=== PATIENT | female | born 1985 | race Caucasian/White ===

== ENCOUNTER 2016-08-09 22:09 | Emergency (ER) | payer SELFPAY ==
[~2016-08-09] VITALS: Ht 175.3 cm; Wt 129.6 kg
[~2016-08-09 22:09] MED LIST: MMW SSP; PRED15SO7 PO
[2016-08-09 22:11] VITALS: BP 183/88; PULSE 82; RESP 18; TEMP 98.2; O2SAT 99
== END 2016-08-09 23:23 | disposition left against medical advice (07) ==
LOC: NED 22:09
DX: N93.9 Abnormal uterine and vaginal bleeding, unspecified (principal)
CPT/HCPCS: 99281

== ENCOUNTER 2016-10-07 12:16 | Emergency (ER) | payer MEDICAID, OTHER ==
[~2016-10-07] VITALS: Ht 175.3 cm; Wt 134.0 kg
[2016-10-07 12:18] VITALS: BP 130/81; PULSE 85; RESP 17; TEMP 98.8; O2SAT 99
[2016-10-07] MEDS ORDERED: AMOX500C PO (12:29)
--- NOTE | 2016-10-07 12:29 | PD ---
HPI . sore throat for few days Chief Complaint: ENT Complaint Time Seen by Provider: 12:24 Travel History International Travel<30 days: No Contact w/Intl Traveler<30days: No Traveled to known affect area: No History of Present Illness HPI 31-year-old female with no significant past medical history here with complaints of what she believes a strep throat. Patient said she's had a sore throat for several days. She also reports a fever that she has been breaking with rotation of Tylenol and ibuprofen.. She admits to a painful throat. She thought she had some gland swelling. She is concerned as she has a disabled child and does not want to get them ill. She denies any coughing or rhinorrhea. PFSH Past Medical History Diminished Hearing: No ?: Not LMP: 10/01/2016 : 1 Para: 1 Past Surgical History Section: Yes Social History Alcohol Use: Yes (OCCAS) Tobacco Use: Yes (/2 PPD) Substance Use: No Allergies-Medications (Allergen,Severity, Reaction): Coded Allergies: No Known Allergies (Unverified , 10/07/16) Reported Meds & Prescriptions Reported Meds & Active Scripts Active Amoxicillin 500 Mg Cap 500 Mg PO BID 10 Days Review of Systems General / Constitutional: No: Fever Eyes: No: Visual changes HENT: Positive: Sore Throat, No: Headaches Cardiovascular: No: Chest Pain or Discomfort Respiratory: No: Shortness of Breath Gastrointestinal: No: Abdominal Pain Genitourinary: No: Dysuria Musculoskeletal: No: Pain Skin: No Rash Neurologic: No: Weakness Psychiatric: No: Depression Endocrine: No: Polydipsia Hematologic/Lymphatic: No: Easy Bruising Physical Exam Narrative GENERAL: AAO x 3, no acute distress, Well-nourished, well-developed patient. SKIN: Warm and dry. No visible rashes or bruising. HEAD: Normocephalic and atraumatic. EYES: No scleral icterus. No injection or drainage. EOM intact, PERRLA ENT: No nasal drainage noted. Mucous membranes pink. Airway patent. Moderate posterior thorax erythema, exudates and tonsillar edema present. TMs normal bilaterally NECK: Supple, trachea midline. No JVD. Minimal cervical chain lymphadenopathy CARDIOVASCULAR: Regular rate and rhythm without murmurs, gallops, or rubs. RESPIRATORY: Breath sounds equal bilaterally. No accessory muscle use. No rhonchi or rales. GASTROINTESTINAL: Abdomen soft, non-tender, nondistended. EXTREMITIES: No cyanosis or edema. BACK: Nontender without obvious deformity. No CVA tenderness. PSYCH: AAO x 3, normal affect. Data Data Last Documented VS Vital Signs Date Time Temp Pulse Resp B/P Pulse Ox O2 Delivery O2 Flow Rate FiO2 10/07/16 12:18 98.8 85 17 130/81 99 MDM Medical Decision Making Medical Screen Exam Complete: Yes Emergency Medical Condition: Yes Medical Record Reviewed: Yes Differential Diagnosis Acute pharyngitis, less likely sinusitis, less likely bronchitis Narrative Course 31-year-old female with no significant past medical history here with complaints of what she believes a strep throat. Patient said she's had a sore throat for several days. She also reports a fever that she has been breaking with rotation of Tylenol and ibuprofen.. She admits to a painful throat. She thought she had some gland swelling. She is concerned as she has a disabled child and does not want to get them ill. She denies any coughing or rhinorrhea. Patient seen and examined. She does have some significant posterior fair erythema, exudates and tonsillar edema. I will bypass rapid strep testing as I am going to opt for treatment due to physical exam findings. She does not have any allergies. We'll use amoxicillin. Take medications as prescribed. Try salt water gargles. Do not share utensils, toothbrush, etc. If you develop difficulty breathing, please go to the nearest emergency room. Patient verbalized understanding of instructions, questions were answered, and thanked me for their care. I advised them if their condition worsens, please return to the nearest emergency room for further care. Diagnosis Primary Impression: Acute pharyngitis Qualified Code: J02.9 - Acute pharyngitis, unspecified etiology Patient Instructions: General Instructions Additional Instructions: Take medications as prescribed. Try salt water gargles. Do not share utensils, toothbrush, etc. If you develop difficulty breathing, please go to the nearest emergency room. Please return to emergency department if your symptoms return or worsen. Follow up with your primary care provider. Take medications as prescribed. Med/Other Pt SpecificInfo: Prescription(s) given Scripts Amoxicillin 500 Mg [id number] Mg PO BID 10 Days Ref 0 Prov:David Montgomery MD 10/07/16 Disposition: 01 DISCHARGE HOME Condition: Stable Kimberly Vital Oct 07, 2016 12:28
== END 2016-10-07 12:42 | disposition home or self-care (01) ==
LOC: PHED 12:16
DX: J02.9 Acute pharyngitis, unspecified (principal); R50.9 Fever, unspecified; F17.200 Nicotine dependence, unspecified, uncomplicated
CPT/HCPCS: 99283

== ENCOUNTER 2016-12-30 21:33 | Observation (INO) | payer MEDICAID ==
[~2016-12-30] VITALS: Ht 175.3 cm; Wt 134.0 kg
[~2016-12-30 21:33] MED LIST changes: +AMOX500C PO; -MMW SSP; -PRED15SO7 PO
[2016-12-30 21:36] VITALS: BP 121/79; PULSE 95; RESP 24; TEMP 98.3; O2SAT 100
[2016-12-30 23:00] LABS: AUTOMATED NEUTROPHIL # 11.5 TH/MM3 (1.8-7.7); BASOPHIL % 0.2 % (0.0-2.0); EOSINOPHIL % 0.3 % (0.0-4.0); HEMATOCRIT 22.1 % (35.0-46.0); LYMPH % 9.9 % (9.0-44.0); LYMPHOCYTE # 1.3 TH/MM3 (1.0-4.8); MEAN CELL VOLUME 69.3 FL (80.0-100.0); MEAN CORPUSCULAR HEMOGLOBIN 21.6 PG (27.0-34.0); MEAN CORPUSCULAR HGB CONC 31.1 % (32.0-36.0); MONO % 5.2 % (0.0-8.0); NEUT % 84.4 % (16.0-70.0); PLATELET COUNT 328 TH/MM3 (150-450); RED BLOOD COUNT 3.19 MIL/MM3 (4.00-5.30); RED CELL DISTRIBUTION WIDTH 18.6 % (11.6-17.2); WHITE BLOOD COUNT 13.6 TH/MM3 (4.0-11.0)
[2016-12-30 23:01] LABS: HEMO FLAGS DIFF FINAL
--- NOTE | 2016-12-30 23:15 | PD ---
HPI Chief Complaint: Abdominal Pain Time Seen by Provider: 22:40 Travel History International Travel<30 days: No Contact w/Intl Traveler<30days: No Traveled to known affect area: No History of Present Illness HPI The patient is a 31 year old female who presents to the [facility] emergency department with a history of heavy vaginal bleeding that began around 5 PM today. The patient reports that her menstrual cycle began last Saturday. She reports that normally it lasts 3-4 days and a light regarding blood flow. She reports that today around 4 PM she began to have increased pelvic cramping and took a Midol. Subsequent to that she began to have heavy uncontrolled vaginal bleeding. She reports that there are clots associated with this. She reports that in August and September she had irregular vaginal bleeding, heavy vaginal bleeding, however her last menstrual cycle since then have been light per usual. She reports that she has not seen a sluice tender for the last 2 years. She reports that she recently established with a new primary care physician that she cannot recall the name of. She is a with a history of one stillbirth. On review of systems, the patient denies any recent fevers cough, congestion, neck pain, chest pain, shortness of breath, vomiting, diarrhea, urinary symptoms, or neurologic symptoms. She denies any possibility of being . The patient reports on further questioning that she was found to be anemic at [facility] in August when she was evaluated for irregular vaginal bleeding. She reports that her hemoglobin was 7 , however she was not treated with a blood transfusion. [facility] Past Medical History Narrative Medical The patient's past medical history is significant for acid reflux and recent dysfunctional uterine bleeding associated with anemia diagnosed at [facility]. Diminished Hearing: No ?: Not LMP: 12/22 : 1 Para: 1 Past Surgical History Narrative Surgical The patient's past surgical history is significant for 2 prior C-sections. Section: Yes Social History Alcohol Use: Yes (OCCAS) Tobacco Use: Yes (one quarter of a pack of cigarettes per day) Substance Use: No Allergies-Medications (Allergen,Severity, Reaction): Coded Allergies: No Known Allergies (Unverified , 12/30/16) Reported Meds & Prescriptions Reported Meds & Active Scripts Active Percocet (Oxycodone-Acetaminophen) 5-325 mg Tab 1 Tab PO Q4H PRN Narrative Medication The patient denies taking any prescribed medications currently. She does occasionally take Prevacid when necessary. Review of Systems Except as stated in HPI: all other systems reviewed are Neg General / Constitutional: No: Fever Eyes: No: Visual changes HENT: No: Headaches Cardiovascular: No: Chest Pain or Discomfort Respiratory: No: Shortness of Breath Gastrointestinal: Positive: Abdominal Pain, No: Nausea, Vomiting, Diarrhea, Hematemesis, Hematochezia, Changes in Bowel Habits, Indigestion, Loss of Appetite Genitourinary: Positive: Pelvic Pain, Vaginal Bleeding, No: Dysuria Musculoskeletal: No: Pain Skin: No Rash Neurologic: No: Weakness Psychiatric: No: Depression Endocrine: No: Polydipsia Hematologic/Lymphatic: No: Easy Bruising Physical Exam Narrative General: The patient is a well-developed well-nourished female in no acute distress. The patient is initially uncomfortable appearing on arrival, intermittently crying out related to reported cramping in the lower abdomen. Head and Neck exam: Head is normocephalic atraumatic. Eyes: EOMI, pupils are equal round and reactive to light. Nose: Midline septum with pink mucous membranes Mouth: Dentition unremarkable. Moist mucus membranes. Posterior oropharynx is not erythematous. No tonsillar hypertrophy. Uvula midline. Airway patent. Neck: No palpable lymphadenopathy. No nuchal rigidity. No thyromegaly. Cardiovascular: Regular rate and rhythm without murmurs, gallops, or rubs. Lungs: Clear to auscultation bilaterally. No wheezes, rhonchi, or rales. Abdomen: Soft, with reported tenderness on palpation of the suprapubic area and bilateral lower quadrants of the abdomen. No other tenderness on palpation of the other quadrants. No guarding, rebound, or rigidity. Negative Witt sign. No tenderness on palpation of McBurney's point. Normal bowel sounds are audible. Extremities: No clubbing, cyanosis, or edema. 2+ pulses in all 4 extremities. No calf tenderness on palpation. Back: No costovertebral angle tenderness to palpation. Neurologic Exam: Grossly nonfocal Skin Exam: No rash noted. Intact skin that is warm and dry. Gynecologic exam: Back into the room after the patient was set up for a gynecologic exam and the patient was noted to have bled through her checks patent. The patient had blood and blood clots all over the bed. The patient was intermittently moaning related to the cramping. The patient's bedside test was noted at that time to be positive. The patient was unaware that she was . The patient was placed in the dorsal lithotomy position. Her external genitalia were examined. She had no evidence of rash or lesions. The speculum was placed into her vagina and the cervix was identified after numerous large swabs and section was done of clots in the vaginal vault. Blood clots were removed from the cervical os. The cervical os was dilated approximately 3 cm. No cervical friability. On Bimanual exam: she has no cervical motion tenderness. No adnexal tenderness or prominence noted on palpation. The patient reports tenderness on palpation of her uterus. Data Data Last Documented VS Vital Signs Date Time Temp Pulse Resp B/P Pulse Ox O2 Delivery O2 Flow Rate FiO2 12/31/16 00:00 94 22 137/62 100 12/30/16 23:51 Nasal Cannula 2 12/30/16 21:36 98.3 Orders Complete Blood Count With Diff (12/30/16 22:41) Comprehensive Metabolic Panel (12/30/16 22:41) Gc And Chlamydia Pcr (12/30/16 22:41) Wet Prep Profile (12/30/16 22:41) Urinalysis - C+S If Indicated (12/30/16 22:41) Iv Access Insert/Monitor (12/30/16 22:41) Ecg Monitoring (12/30/16 22:41) Ed Urine Pregnancytest Poc (12/30/16 22:41) Ed Poc Ultrasound (12/30/16 ) Us Pelvis (Ques Pr/Ect)W Trans (12/30/16 22:55) Beta Hcg (Quant/Titer) (12/30/16 23:47) Oximetry (12/30/16 23:47) Type And Screen (12/30/16 23:47) Red Blood Cells (Rbc) (12/30/16 23:47) Sodium Chlor 0.9% 1000 Ml Inj (Ns 1000 M (12/31/16 00:00) Morphine Inj (Morphine Inj) (12/31/16 00:00) Ondansetron Inj (Zofran Inj) (12/31/16 00:00) Fentanyl Inj (Fentanyl Inj) (12/31/16 00:00) Fentanyl Inj (Fentanyl Inj) (12/31/16 00:03) Admit Order (Ed Use Only) (12/31/16 00:12) Labs Laboratory Tests Test 12/30/16 12/30/16 22:50 23:50 White Blood Count 13.6 TH/MM3 Red Blood Count 3.19 MIL/MM3 Hemoglobin 6.9 GM/DL Hematocrit 22.1 % Mean Corpuscular Volume 69.3 FL Mean Corpuscular Hemoglobin 21.6 PG Mean Corpuscular Hemoglobin 31.1 % Concent Red Cell Distribution Width 18.6 % Platelet Count 328 TH/MM3 Mean Platelet Volume 9.3 FL Neutrophils (%) (Auto) 84.4 % Lymphocytes (%) (Auto) 9.9 % Monocytes (%) (Auto) 5.2 % Eosinophils (%) (Auto) 0.3 % Basophils (%) (Auto) 0.2 % Neutrophils # (Auto) 11.5 TH/MM3 Lymphocytes # (Auto) 1.3 TH/MM3 Monocytes # (Auto) 0.7 TH/MM3 Eosinophils # (Auto) 0.0 TH/MM3 Basophils # (Auto) 0.0 TH/MM3 CBC Comment DIFF FINAL Differential Comment Sodium Level 136 MEQ/L Potassium Level 3.6 MEQ/L Chloride Level 107 MEQ/L Carbon Dioxide Level 18.8 MEQ/L Anion Gap 10 MEQ/L Blood Urea Nitrogen 11 MG/DL Creatinine 0.68 MG/DL Estimat Glomerular Filtration 101 ML/MIN Rate Random Glucose 135 MG/DL Calcium Level 8.2 MG/DL Total Bilirubin 0.5 MG/DL Aspartate Amino Transf 8 U/L (AST/SGOT) Alanine Aminotransferase 11 U/L (ALT/SGPT) Alkaline Phosphatase 87 U/L Total Protein 6.2 GM/DL Albumin 2.8 GM/DL Human Chorionic Gonadotropin, 6485 MIU/ML Quant Blood Type A POSITIVE Antibody Screen NEGATIVE Crossmatch Leukocyte-Reduced Red Blood Cells Blood Bank Comment MDM Medical Decision Making Medical Screen Exam Complete: Yes Emergency Medical Condition: Yes Medical Record Reviewed: Yes Interpretation(s) Last Impressions Pelvis Ultrasound 12/30/16 7646 Signed Impressions: Service Date/Time: Friday, December 30, 2016 23:42 - CONCLUSION: Thickened heterogeneous echotexture endometrium with some vascularity. No intrauterine identified. Jose Davenport MD Differential Diagnosis Ovarian torsion, versus fibroids, versus dysfunctional uterine bleeding related to a hormonal cause, versus endometriosis, versus polycystic ovarian syndrome Narrative Course During the course of the patients emergency department visit, the patients history, examination, and differential diagnosis were reviewed with the patient. The patient had IV access obtained and blood work sent for analysis. The patient was placed on a cardiac/vascular sonographer with oximetry and blood pressure monitoring. When the patient was noted to have heavy vaginal bleeding, 2 large bore IVs were placed in bilateral upper extremities. The patient was typed and crossmatched for blood administration pending blood results. Initially an ultrasound was ordered to be done through the radiology department in order to evaluate for ovarian torsion, however then the patient was noted to have a positive test at the bedside. The bedside ultrasound was emergently done by me, no intrauterine was able to be identified. A call was placed out to the OB hospitalist at 11:43 PM. I spoke to Dr. Tsai. I explained the situation. He will be urgently into the emergency department to evaluate the patient. The patient was initially provided normal saline 1 L IV fluid bolus. The patient was given fentanyl 25 g IV for pain, Zofran 4 mg IV for nausea. The patients laboratory studies were reviewed and remarkable for a white count of 13.6, hemoglobin 6.9, platelets 328 with 84.4 neutrophils. The patient was immediately typed and crossmatched for 4 units of packed red blood cells with 2 units of packed red blood cells to be administered in preparation for going to the OR. CMP is remarkable for CO2 of 18.8, glucose 135, calcium 8.2, AST 8, total protein 6.2, albumin 2.8, monitor data beta hCG is 6485, blood type is noted to be A+ Radiology studies were reviewed and remarkable for a pelvic ultrasound done by the radiology department 3 transvaginal route a revealed thickened heterogeneous echotexture endometrium with some vascularity, no intrauterine identified. The patient was urgently taken to the OR by the sluice tender on-call. The patients results were discussed with the patient, including the plan of care. I explained that further testing and/ or monitoring is indicated based on the patients history, examination, and/ or laboratory findings. Therefore, I recommended admission for additional evaluation. The patient expressed understanding and was agreeable with this plan. The patient was admitted to the hospital in guarded condition and sent to a bed under the care of the sluice tender. Critical Care Narrative Aggregate critical care time was 35 minutes. Time to perform other separately billable procedures was not included in the critical care time. My time did not include minutes spent treating any other patients simultaneously or on activities that did not directly contribute to the patient's treatment. The services I provided to this patient were to treat and/or prevent clinically significant deterioration that could result in: Progression of hemorrhagic shock, versus cardiovascular collapse I provided critical care services requiring my management, as noted below: Chart data review, documentation time, medication orders and management, vital sign assessments/reviewing monitor data, ordering and reviewing lab tests, ordering and interpreting/reviewing x-rays and diagnostic studies, care of the patient and discussion of the patient with the admitting physicians. Procedures Procedure Narrative Emergency Department Pelvic ultrasound was performed with patient consent. The curvilinear probe was used in the transverse and sagittal views within the suprapubic region revealing no evidence of an intrauterine identified by me. Transvaginal ultrasound was ordered by the radiology department. Physician Communication Physician Communication The patient's case was discussed with Dr. Tsai the OB ED hospitalist. Diagnosis Primary Impression: Incomplete Additional Impressions: Hemorrhage affecting Anemia Qualified Code: D50.0 - Iron deficiency anemia due to chronic blood loss Admitting Information Admitting Physician Requests: Admit Scripts Oxycodone-Acetaminophen (Percocet)5-325 mg Tab1 Tab PO Q4H PRN (PAIN) #20 TAB Ref 0 Prov:Jhonatan Cabrera MD 12/31/16 Lalita Alvarez MD Dec 30, 2016 23:15
[2016-12-30 23:22] LABS: ANION GAP 10 MEQ/L (5-15); AST (GOT) 8 U/L (15-37); BICARBONATE 18.8 MEQ/L (21.0-32.0); BLOOD UREA NITROGEN 11 MG/DL (7-18); CHLORIDE 107 MEQ/L (98-107); GLOMERULAR FILTRATION RATE 101 ML/MIN (>89); POTASSIUM 3.6 MEQ/L (3.5-5.1); SODIUM (NA) 136 MEQ/L (136-145)
[2016-12-30 23:25] LABS: ALKALINE PHOSPHATASE 87 U/L (45-117); ALT (GPT) 11 U/L (10-53); TOTAL BILIRUBIN ADULT 0.5 MG/DL (0.2-1.0)
[2016-12-30 23:42] VITALS: BP 179/123; PULSE 102; RESP 22; O2SAT 100
[2016-12-30 23:47] VITALS: BP 152/65; PULSE 88; RESP 22; O2SAT 10; O2SAT 100
[2016-12-30 23:51] VITALS: O2SAT 100
[2016-12-31] VITALS (8 sets, daily range): BP systolic 91–146; BP diastolic 53–74; PULSE 64–94; RESP 15–23; TEMP 96.9–98.3; O2SAT 98–100
[2016-12-31] MEDS ORDERED: SODIUM CHLOR 0.9% 1000 ML INJ 1,000 ML IV ONE
[2016-12-31] MEDS ORDERED: fentaNYL CITRATE 250 MCG/5 ML AMP IV PUSH ONE
[2016-12-31] MEDS ORDERED: MORPHINE SULFATE 4 MG/ML INJ IV PUSH ONE
--- NOTE | 2016-12-31 00:21 | HHI.HP ---
History & Physical H&P Patient Name: Andrea Calero Unit Number: [id number] Date of : 1985 Patient Status: Registered Emergency Room Attending Doctor: Lalita Alvarez MD HPI HPI Chief Complaint: Abdominal Pain Time Seen by Provider: 22:40 Travel History International Travel<30 days: No Contact w/Intl Traveler<30days: No Traveled to known affect area: No History of Present Illness HPI The patient is a 31 year old female who presents to the [facility] [address] emergency department with a history of heavy vaginal bleeding that began around 5 PM today. The patient reports that her menstrual cycle began last Saturday. She reports that normally it lasts 3-4 days and a light regarding blood flow. She reports that today around 4 PM she began to have increased pelvic cramping and took a Midol. Subsequent to that she began to have heavy uncontrolled vaginal bleeding. She reports that there are clots associated with this. She reports that in August and September she had irregular vaginal bleeding, heavy vaginal bleeding, however her last menstrual cycle since then have been light per usual. She reports that she has not seen a power hammer operator for the last 2 years. She reports that she recently established with a new primary care physician that she cannot recall the name of. She is a with a history of one stillbirth. On review of systems, the patient denies any recent fevers cough, congestion, neck pain, chest pain, shortness of breath, vomiting, diarrhea, urinary symptoms, or neurologic symptoms. History PFSH Past Medical History Narrative Medical The patient's past medical history is significant for acid reflux. Diminished Hearing: No ?: Not LMP: 12/22 : 4 Para: 3 L-2 Past Surgical History Narrative Surgical The patient's past surgical history is significant for 2 prior C-sections. Section: Yes Social History Alcohol Use: Yes (OCCAS) Tobacco Use: Yes (one quarter of a pack of cigarettes per day) Substance Use: No Allergies-Medications Allergies-Medications (Allergen,Severity, Reaction): Coded Allergies: No Known Allergies (Unverified , 12/30/16) Reported Meds & Prescriptions Reported Meds & Active Scripts Active Active Prescriptions or Reported Medications Unobtainable Narrative Medication The patient denies taking any prescribed medications currently. She does occasionally take Prevacid when necessary. ROS Review of Systems Except as stated in HPI: all other systems reviewed are Neg General / Constitutional: No: Fever Eyes: No: Visual changes HENT: No: Headaches Cardiovascular: No: Chest Pain or Discomfort Respiratory: No: Shortness of Breath Gastrointestinal: Positive: Abdominal Pain, No: Nausea, Vomiting, Diarrhea, Hematemesis, Hematochezia, Changes in Bowel Habits, Indigestion, Loss of Appetite Genitourinary: Positive: Pelvic Pain, Vaginal Bleeding, No: Dysuria Musculoskeletal: No: Pain Skin: No Rash Neurologic: No: Weakness Psychiatric: No: Depression Endocrine: No: Polydipsia Hematologic/Lymphatic: No: Easy Bruising Physical Exam Physical Exam Narrative General: The patient is a well-developed well-nourished female in no acute distress. Head and Neck exam: Head is normocephalic atraumatic. Eyes: EOMI, pupils are equal round and reactive to light. Nose: Midline septum with pink mucous membranes Mouth: Dentition unremarkable. Moist mucus membranes. Posterior oropharynx is not erythematous. No tonsillar hypertrophy. Uvula midline. Airway patent. Neck: No palpable lymphadenopathy. No nuchal rigidity. No thyromegaly. Cardiovascular: Regular rate and rhythm without murmurs, gallops, or rubs. Lungs: Clear to auscultation bilaterally. No wheezes, rhonchi, or rales. Abdomen: Soft, with reported tenderness on palpation of the suprapubic area and bilateral lower quadrants of the No guarding, rebound, or rigidity. Negative [place] sign. No tenderness on palpation of McBurney's point. Negative Narvaez 's sign. Extremities: No clubbing, cyanosis, or edema. 2+ pulses in all 4 extremities. No calf tenderness on palpation. Back: No costovertebral angle tenderness to palpation. Neurologic Exam: Grossly nonfocal Skin Exam: No rash noted. Intact skin that is warm and dry. Gynecologic exam: Back into the room after the patient was set up for a gynecologic exam and the patient was noted to have bled through her checks patent. The patient had blood and blood clots all over the bed. The patient was intermittently moaning related to the cramping. The patient's bedside test was noted at that time to be positive. The patient was unaware that she was . The patient was placed in the dorsal lithotomy position. Her external genitalia were examined. She had no evidence of rash or lesions. The speculum was placed into her vagina and the cervix was identified. She had a physiologic appearing clear white discharge. No cervical friability. On Bimanual exam: she has no cervical motion tenderness. No adnexal tenderness or prominence noted on palpation. No uterine tenderness or enlargement noted on palpation. Data Data Data Last Documented VS Vital Signs Date Time Temp Pulse Resp B/P Pulse Ox O2 Delivery O2 Flow Rate FiO2 12/30/16 23:51 100 Nasal Cannula 2 12/30/16 21:36 98.3 95 24 121/79 Orders Complete Blood Count With Diff (12/30/16 22:41) Comprehensive Metabolic Panel (12/30/16 22:41) Gc And Chlamydia Pcr (12/30/16 22:41) Wet Prep Profile (12/30/16 22:41) Urinalysis - C+S If Indicated (12/30/16 22:41) Iv Access Insert/Monitor (12/30/16 22:41) Ecg Monitoring (12/30/16 22:41) Ed Urine Pregnancytest Poc (12/30/16 22:41) Ed Poc Ultrasound (12/30/16 ) Us Pelvis (Ques Pr/Ect)W Trans (12/30/16 22:55) Beta Hcg (Quant/Titer) (12/30/16 23:47) Oximetry (12/30/16 23:47) Type And Screen (12/30/16 23:47) Red Blood Cells (Rbc) (12/30/16 23:47) Sodium Chlor 0.9% 1000 Ml Inj (Ns 1000 M (12/31/16 00:00) Morphine Inj (Morphine Inj) (12/31/16 00:00) Ondansetron Inj (Zofran Inj) (12/31/16 00:00) Labs Positive preg test Laboratory Tests Test 12/30/16 22:50 White Blood Count 13.6 TH/MM3 Red Blood Count 3.19 MIL/MM3 Hemoglobin 6.9 GM/DL Hematocrit 22.1 % Mean Corpuscular Volume 69.3 FL Mean Corpuscular Hemoglobin 21.6 PG Mean Corpuscular Hemoglobin 31.1 % Concent Red Cell Distribution Width 18.6 % Platelet Count 328 TH/MM3 Mean Platelet Volume 9.3 FL Neutrophils (%) (Auto) 84.4 % Lymphocytes (%) (Auto) 9.9 % Monocytes (%) (Auto) 5.2 % Eosinophils (%) (Auto) 0.3 % Basophils (%) (Auto) 0.2 % Neutrophils # (Auto) 11.5 TH/MM3 Lymphocytes # (Auto) 1.3 TH/MM3 Monocytes # (Auto) 0.7 TH/MM3 Eosinophils # (Auto) 0.0 TH/MM3 Basophils # (Auto) 0.0 TH/MM3 CBC Comment DIFF FINAL Differential Comment Sodium Level 136 MEQ/L Potassium Level 3.6 MEQ/L Chloride Level 107 MEQ/L Carbon Dioxide Level 18.8 MEQ/L Anion Gap 10 MEQ/L Blood Urea Nitrogen 11 MG/DL Creatinine 0.68 MG/DL Estimat Glomerular Filtration 101 ML/MIN Rate Random Glucose 135 MG/DL Calcium Level 8.2 MG/DL Total Bilirubin 0.5 MG/DL Aspartate Amino Transf 8 U/L (AST/SGOT) Alanine Aminotransferase 11 U/L (ALT/SGPT) Alkaline Phosphatase 87 U/L Total Protein 6.2 GM/DL Albumin 2.8 GM/DL Exceptions Exceptions MDM MDM Medical Decision Making Medical Screen Exam Complete: Yes Emergency Medical Condition: Yes Medical Record Reviewed: Yes Differential Diagnosis Incomplete Spontaneous , Ovarian torsion, versus fibroids, versus dysfunctional uterine bleeding related to a hormonal cause, versus endometriosis , versus polycystic ovarian syndrome Narrative Course During the course of the patients emergency department visit, the patients history, examination, and differential diagnosis were reviewed with the patient. The patient had IV access obtained and blood work sent for analysis. The patient was placed on a cardiac care nurse with oximetry and blood pressure monitoring. The patient was initially provided normal saline 1 L IV fluid bolus. The patients laboratory studies were reviewed and remarkable for [-]. Radiology studies were reviewed and remarkable for [-] A call was placed out to the OB hospitalist at 11:43 PM. . I explained the situation. I am in urgently into the emergency department to evaluate the patient. The patients results were discussed with the patient, including the plan of care. I explained that further testing and/ or monitoring is indicated based on the patients history, examination, and/ or laboratory findings. Therefore, I recommended admission for additional evaluation. The patient expressed understanding and was agreeable with this plan. The patient was admitted to the hospital in guarded condition and sent to a bed under the care of the power hammer operator. Scripts Unable to Obtain Active Prescriptions or Reported Meds Dec 30, 2016 23:15 See Tsai II, MD Dec 31, 2016 00:21
[2016-12-31] MEDS ORDERED: OXYTOCIN 10 UNIT/ML AMP ONE (00:40)
--- NOTE | 2016-12-31 00:41 | RADRPT ---
EXAM DATE/TIME: 12/30/2016 23:42 [place] COMPARISON: No previous studies available for comparison. INDICATIONS : Heavy bleeding. LAB(S): Beta-hCG: MEDICAL HISTORY : Heavy vaginal bleeding. Unable to obtain. SURGICAL HISTORY : section. ENCOUNTER: Initial ACUITY: 4-6 days PAIN SCORE: 10/10 LOCATION: Bilateral pelvis MEASUREMENTS: UTERUS: 11.1 x 6.2 x 6.2 cm FINDINGS: There is a heterogeneity of echotexture within the endometrial cavity which measures in excess of 4.6 cm in oblique dimension. A small elongated area of fluid is seen centrally, but an intrauterine pre gnancy cannot be documented. The endometrial material does demonstrate some flow on power Doppler im aging. The There is mild free fluid seen in the cul-de-sac. Neither ovary is imaged. CONCLUSION: Thickened heterogeneous echotexture endometrium with some vascularity. No intrauterine naun ntified. Jose Davenport MD on December 31, 2016 at 0:35 Board Certified Radiologist. This report was verified electronically.
[2016-12-31] MEDS ORDERED: DICLOFENAC SODIUM 37.5 MG/ML VIAL IV PUSH ONE (00:45)
[2016-12-31] MEDS ORDERED: ACETAMINOPHEN 1000 MG/100 ML VIAL IV ONE (00:45)
[2016-12-31] MEDS ORDERED: FAMOTIDINE 20 MG/2 ML VIAL ONE (00:46)
[2016-12-31 01:27] LABS: BETA HCG QUANT 6485 MIU/ML (0-5)
[2016-12-31] MEDS ORDERED: DO NOT ADM ANY ANTICOAGULANT DRUGS PRN ×2 (01:30→02:00)
[2016-12-31] MEDS ORDERED: MIDAZOLAM HCL 2 MG/2 ML VIAL ONE (01:43)
--- NOTE | 2016-12-31 01:43 | PD.OP ---
Operative Report Date of Surgery: Dec 31, 2016 Preoperative Diagnosis: (1) Incomplete Postoperative Diagnosis: (1) Incomplete Procedure: D&C with suction Anesthesia: General LEV Surgeon: Jhonatan Cabrera Joint Cutter(s): Jhonatan Stack MD Dec 31, 2016 01:43
[2016-12-31] MEDS ORDERED: ONDANSETRON HCL 4 MG/2 ML VIAL IV PUSH PRN (01:45)
[2016-12-31] MEDS ORDERED: oxyCODONE/ACETAMINOPHEN 5 MG/325 MG TAB PO PRN (01:45)
[2016-12-31] MEDS ORDERED: oxyCODONE/ACETAMINOPHEN 10 MG/325 MG TAB PO PRN (01:45)
[2016-12-31] MEDS: LACTATED RINGER'S 1000 ML INJ 1,000 ML IV SCH ×2 (02:05→11:46)
[2016-12-31] MEDS ORDERED: METOPROLOL TARTRATE 25 MG TAB PO PRN (02:15)
[2016-12-31] MEDS ORDERED: INSULIN HUMAN REGULAR 1,000 UNITS/10 ML VIAL SQ PRN (02:15)
[2016-12-31] MEDS ORDERED: CHLORHEXIDINE GLUCONATE 2 % 1 PACK (2 CLOTHS) TOPICAL PRN (02:15)
[2016-12-31] MEDS ORDERED: SODIUM CHLORID 0.9% 500 ML IV PRN (02:15)
[2016-12-31] MEDS ORDERED: POVIDONE IODINE 5% (ANTISEPSIS KIT) 4 APPLICATIONS EACH NARE PRN (02:15)
[2016-12-31] MEDS ORDERED: LACTATED RINGER'S 1000 ML IV PRN (02:15)
--- NOTE | 2016-12-31 08:19 | MP ---
cc: TREVA CABRERA M.D. DATE OF SURGERY: 12/31/2016 PROCEDURE Dilation and curettage with suction curette. PREOPERATIVE DIAGNOSIS Incomplete . POSTOPERATIVE DIAGNOSIS Incomplete . SURGEON Dr. Treva Cabrera ESTIMATED BLOOD LOSS 100 cc. FINDINGS The os was opened. Products of conception were at the os. A large amount of tissue was at the os. SURGEON Dr. Treva Cabrera ANESTHESIA General, Dr. Yony Flores PROCEDURE IN DETAIL After informed consent the patient was taken to the operating room where she was placed under general anesthesia. She was placed in supine position with legs in the candy-cane stirrups. The abdomen, perineum and vagina were prepped and draped in normal sterile fashion. A timeout had been taken and consents had been reviewed. After adequate anesthesia was assured, the patient was prepped and draped in normal sterile fashion. The bladder was drained with a red rubber Low catheter. A speculum was placed in the vagina. The cervix was grasped with a single-tooth tenaculum. We passed a suction curette, 13 cm, to the fundus. A large amount of products of conception were evacuated. A ring forceps was used to pull a 4 cm segment of placenta out of the os. A sharp curette was passed in all four quadrants. There were no remaining products of conception. A 12 mm trocar was then passed. All products of conception were evacuated. At the end of the procedure the tenaculum was removed and massage was given until bleeding was well-controlled. She will be admitted to the hospital for 23-hour observation to be discharged home within 24 hours of the surgical procedure as long as she is stable. MD LAMONT Orozco/YOLIE /1:50 AM /8:21 AM
--- NOTE | 2016-12-31 08:19 | HHI.OB ---
Subjective Post Operative Day: 1 Remarks Patient had surgery 6 hours ago and now she is finishing unit of blood. Ok to dc home if HGB above 7 and patient asymptomatic Objective Vitals/I&O Vital Signs Date Time Temp Pulse Resp B/P Pulse Ox O2 Delivery O2 Flow Rate FiO2 12/31/16 05:52 96.9 75 16 117/55 98 12/31/16 05:35 97.7 66 16 108/55 99 12/31/16 05:12 97.9 72 16 110/56 99 12/31/16 03:00 97.3 64 18 110/54 100 12/31/16 02:30 97.8 68 16 151/68 100 Room Air 12/31/16 02:15 98.4 71 22 147/72 100 Room Air 12/31/16 02:00 98.3 69 23 146/74 100 Room Air 12/31/16 02:00 98.3 69 23 146/74 100 12/31/16 01:45 75 18 134/69 100 Nasal Cannula 2 12/31/16 01:38 98.4 87 16 123/63 100 Nasal Cannula 2 12/31/16 00:00 94 22 137/62 100 12/30/16 23:51 100 Nasal Cannula 2 12/30/16 23:47 88 22 152/65 100 12/30/16 23:42 102 22 179/123 100 12/30/16 21:36 98.3 95 24 121/79 100 Room Air Intake & Output 12/31/16 12/31/16 07:00 19:00 Intake Total 850 ml Output Total 100 ml Balance 750 ml Intake Oral 0 ml IV Total 200 ml Packed Cells 250 ml Other 400 ml Output Urine Total 0 ml Estimated Blood Loss 100 ml Other 0 ml Result Diagram: 12/30/16224912/30/162249 Objective Remarks GENERAL: Well-nourished, well-developed patient. . ABDOMEN/GI: Abdomen soft, non-tender, bowel sounds present. Fundus: Firm, GENITOURINARY: Light to moderate bleeding. EXTREMITIES: No cyanosis or edema, non-tender, without signs of DVT. Medications and IVs Current Medications Medications (Trade) Dose Ordered Sig/Dorene Route Start Time Stop Time Status Last Admin (Lr 1000 ml Inj) 1,000 ml @ 125 mls/hr Q8H IV 6/26/17 01:45 12/31/16 02:05 Miscellaneous Information ALL NURSING DEPARTME... UNSCH PRN .XX 12/31/16 01:30 Assessment/Plan Problem List: (1) Incomplete Assessment and Plan dc home today surgery complete and 2 units transfused Jhonatan Cabrera MD Dec 31, 2016 08:18
--- NOTE | 2016-12-31 08:21 | HHI.DCPOC ---
Discharge Care Plan Diagnosis: (1) Incomplete (2) Hemorrhage affecting Report Symptoms to Your Doctor -Temperature above 100.5 degrees -Redness, of incision or excessive or foul smelling drainage -Unusual pain or calf pain -Increased vaginal bleeding -Painful or difficulty urinating -Feelings of extreme sadness or anxiety after 2 weeks Goals to Promote Your Health * To prevent worsening of your condition and complications * To maintain your health at the optimal level Directions to Meet Your Goals Take your medications as prescribed Follow your dietary instruction Follow activity as directed Ensure plenty of rest for recovery Drink fluids for hydration Keep your appointments as scheduled Take your immunizations and boosters as scheduled If your symptoms worsen call your PCP, if no PCP go to Urgent Care Center or Emergency Room Smoking is Dangerous to Your Health. Avoid second hand smoke Call the 24-hour crisis hotline for domestic abuse at Jhonatan Cabrera MD Dec 31, 2016 08:21
[2016-12-31] MEDS ORDERED: PERC5TAB12 PO (08:22)
--- NOTE | 2016-12-31 08:24 | HHI.DS ---
Admission Date Dec 31, 2016 at 00:15 Admitting Diagnosis Spontaneous with hemorrhage Diagnosis: (1) Hemorrhage affecting Diagnosis: Principal (2) Incomplete Diagnosis: Principal Brief History 31 yo did not know she was and bleed heavy came in for bleeding Hospital Course Pt had D&C and received 2 units PRBC's dc home 12/31 Pt Condition on Discharge: Good Discharge Disposition: Discharge Home Discharge Instructions Diet Instructions: As Tolerated, No Restrictions Activities You Can Perform: Pelvic Rest Follow up Referrals: MALTED MILK MIXER - 2 Weeks @ [facility] with Jhonatan Cabrera MD New Medications: Oxycodone-Acetaminophen (Percocet) 5-325 mg Tab 1 TAB PO Q4H PRN PAIN #20 Ref 0 TAB Jhonatan Cabrera MD Dec 31, 2016 08:24
[2016-12-31] MEDS ORDERED: PROPOFOL 200 MG/20 ML AMP IV ONE (12:00)
[2016-12-31] MEDS ORDERED: LACTATED RINGER'S 1000 ML INJ 1,000 ML IV ONE (12:00)
[2016-12-31] MEDS ORDERED: ONDANSETRON HCL 4 MG/2 ML VIAL IV PUSH ONE ×2 (12:00)
[2016-12-31 12:39] LABS: REVIEW FLAG FINAL
[2016-12-31 12:42] LABS: HEMATOCRIT 19.8 % (35.0-46.0)
== END 2016-12-31 16:05 | disposition home or self-care (01) ==
LOC: NEPC 21:33 → NEDA 12-31 00:15 → INTOOBSV 12-31 00:15 → HOCA 12-31 02:41 → UNDODISIN 12-31 16:05
PROVIDERS: ADMIT Obstetrics & Gynecology; ATTEND Obstetrics & Gynecology
PROC: 10D17ZZ Extraction of Products of Conception, Retained, Via Natural or Artificial Opening (ICD-10-PCS; principal; 2016-12-31 01:04)
DX: O03.4 Incomplete spontaneous abortion without complication (principal); D50.0 Iron deficiency anemia secondary to blood loss (chronic); R11.0 Nausea; K21.9 Gastro-esophageal reflux disease without esophagitis; F17.210 Nicotine dependence, cigarettes, uncomplicated
CPT/HCPCS: 01965; 36430; 59812; 76700; 76817; 80053; 84702; 84703; 85014; 85018; 85025; 86850; 86900; 86901; 86920; 88300; 88305; 96374; 96375; 99291; G0378; J0131; J1130; J2250; J2405; J3010; J7030; J7120; P9016; J2590

== ENCOUNTER → 2017-12-26 | Outpatient (CLI) | payer MEDICAID ==
[~2017-12-26] MED LIST changes: -AMOX500C PO; +PERC5TAB12 PO
== END ==
LOC: HPND 12:47
PROVIDERS: ATTEND Obstetrics & Gynecology
DX: O99.213 Obesity complicating pregnancy, third trimester (principal); E66.01 Morbid (severe) obesity due to excess calories; Z68.41 Body mass index [BMI] 40.0-44.9, adult; O09.293 Supervision of pregnancy with other poor reproductive or obstetric history, third trimester
CPT/HCPCS: 76811

== ENCOUNTER 2018-02-27 11:18 | Inpatient (IN) ==
[2018-02-27] MEDS ORDERED: ceFAZolin Inj 2,000 MG in Sodium Chlor 0.9% Inj 80 ML IV.SIG SCH (12:00)
[2018-02-27] MEDS ORDERED: Ketorolac Inj 30 MG/ML (IVP) Vial IV.PUSH ONE (12:00)
[2018-02-27] MEDS ORDERED: Phenylephrine/NS 1000 MCG/10ML Syringe IV.PUSH ONE (12:00)
[2018-02-27] MEDS ORDERED: Citric Acid/Sodium Citrate Liq 30 ML UDC PO SCH (12:00)
--- NOTE | 2018-02-27 12:03 | ED ---
History of Present Illness Primary Care Physician: No Primary Care Physician Chief Complaint: scheduled c/s History of Present Illness: Pt is a 32y/o @ 39.0wks. She has PNC with [facility]. She presents for rCS and BTL. is c/b h/o CSx2, h/o SAB with transfusion, and h/o IUFD at 28wks. 1. IUFD @ 28wks - 2. C/S for failed IOL at term 3. rCS 4. SAB with hemorrhage, D&C, transfusion 5. current Weeks Gestation:: 39 Para: 3 : 5 - Inpatient Certification I certify that the inpatient services were ordered in accordance with Medicare regulations governing the order. This includes certification that hospital inpatient services are reasonable and necessary and in the case of services not specified as inpatient-only under 42 CFR 419.22(n), that they are appropriately provided as inpatient services in accordance to with the 2-midnight benchmark under 43 CFR 412.3(e) Estimated Total Length of Stay (Days): 3 Plans for Post Hospital Care: Home Review of Systems All other systems reviewed negative except as stated in HPI [facility] - History History Provided By: Patient - Medical History Medical History: Medical History (Last Updated 02/15/18 @ 23:15 by Belkys Meza MD) History of blood transfusion (Acute) delivery delivered (Acute) - Surgical History Surgical History: Surgical History (Last Updated 02/15/18 @ 23:15 by Belkys Meza MD) History of dilatation and curettage (Acute) - Tobacco History Second Hand Smoke Exposure: No Smoking Status: Current every day smoker (1/2 PPD) - Alcohol History How Often Do You Have a Drink Containing Alcohol: Monthly or less - Substance Use History Substance History: No History of Abuse Medications and Allergies Active Medications: Active Medications Citric Acid/Sodium Citrate (Sodium Citrate/Citric Acid Liq) 30 ml PO PAVER OPERATOR GARY Stop: 03/03/18 11:59 Cefazolin Sodium 2,000 mg/ (Sodium Chloride) 100 mls @ 200 mls/hr IV.SIG PAVER OPERATOR GARY Stop: 03/03/18 11:59 Lactated Ringer's (Lr 1000 Ml Inj) 1,000 mls @ 150 mls/hr IV.CONT .Q6H40M GARY Lactated Ringer's (Lr 1000 Ml Inj) 1,000 mls @ 2,000 mls/hr IV.SIG .Q30M ONE Stop: 02/27/18 12:24 Allergies Allergy/AdvReac Type Severity Reaction Status Date / Time morphine Allergy Vomiting Verified 02/15/18 22:38 Home Medications Medication Instructions Recorded Confirmed Type esomeprazole magnesium [Nexium] 20 mg PO DAILY 02/15/18 02/15/18 History ferrous sulfate [iron] 325 mg PO DAILY 02/15/18 02/15/18 History prenat.vits,spike,[id number] 1 tab PO DAILY 02/15/18 02/15/18 History [ Vitamin] Exam Vital signs: Vital Signs 02/27/18 11:31 02/27/18 11:32 Temperature 97.9 F Pulse Rate 104 H Blood Pressure 122/69 Narrative: General: well developed, well nourished, no acute distress HEENT: normocephalic atraumatic, extraocular movements intact, neck supple Abdomen: soft, gravid, nontender, nondistended Uterus: fundus term Extremities: full range of motion Skin: normal coloration, no rashes, no suspicious skin lesions noted Neurologic: cranial nerves 2-12 grossly intact, normal muscle tone, normal gait Psychiatric: normal mood and affect, appropriate FHTs: 115-120, +accels, no decels, moderate variability, reactive Horace: quiet Cvx: deferred Results - Labs CBC & Chem 7: 02/27/18 11:40 Assessment and Plan - Diagnosis (1) 39 weeks gestation of Code(s): Z3A.39 - 39 weeks gestation of Status: Acute (2) History of section Code(s): Z98.891 - History of uterine scar from previous surgery Status: Acute (3) History of blood transfusion Code(s): Z92.89 - Personal history of other medical treatment Status: Acute (4) History of dilatation and curettage Code(s): Z98.890 - Other specified postprocedural states Status: Acute - Plan 32y/o @ 39.0wks with h/o CS x2 presents for rCS/BTL. R/B/A of were discussed with the patient. Specifically we reviewed risks of bleeding, infection, pain, injury to baby or internal organs/nerves/ vessels/structures. We reviewed the rare but possible need for emergency hysterectomy if uncontrolled bleeding occurs. She was also counseled on the rare but possible need for a blood transfusion and the associated risks of allergic reaction, HIV (1:1M), and hepatitis (4:1M). She voiced understanding, all questions were answered, and consents were signed. Orders have been placed, bicitra and antibiotics administered, SCDs and mosher placed, and RN/ANES/NICU/Charge notified. Discharge Plan - Physicians Team Primary Care Provider: Primary Care Manda Irizarry Attending Provider: Belkys Meza Rxs /Orders / Referrals /Forms Prescriptions: No Action albuterol sulfate 90 mcg/actuation HFA aerosol inhaler 2 inh INHALATION Q8H PRN (Reason: bronchospasm) Qty: 8 RF: 1 esomeprazole magnesium [Nexium] 20 mg Capsule,Delayed Release(Dr/Ec) 20 mg PO DAILY ferrous sulfate [iron] 325 mg (65 mg iron) Tablet 325 mg PO DAILY prenat.vits,spike,[id number] [ Vitamin] Tablet 1 tab PO DAILY
--- NOTE | 2018-02-27 12:06 | P.HPOB ---
*LIVE* [facility] OB Admission H&P Patient Name: Andrea Calero Date of : 85 Patient Status: Inpatient Attending Provider: Belkys Meza V Date: 02/27/18 12:00 Initialization Date: 02/27/18 12:00 History of Present Illness Primary Care Physician: No Primary Care Physician Chief Complaint: scheduled c/s History of Present Illness: Pt is a 32y/o @ 39.0wks. She has PNC with [facility]. She presents for rCS and BTL. is c/b h/o CSx2, h/o SAB with transfusion, and h/o IUFD at 28wks. 1. IUFD @ 28wks - 2. C/S for failed IOL at term 3. rCS 4. SAB with hemorrhage, D&C, transfusion 5. current Weeks Gestation:: 39 Para: 3 : 5 - Inpatient Certification I certify that the inpatient services were ordered in accordance with Medicare regulations governing the order. This includes certification that hospital inpatient services are reasonable and necessary and in the case of services not specified as inpatient-only under 42 CFR 419.22(n), that they are appropriately provided as inpatient services in accordance to with the 2-midnight benchmark under 43 CFR 412.3(e) Estimated Total Length of Stay (Days): 3 Plans for Post Hospital Care: Home Review of Systems All other systems reviewed negative except as stated in HPI PMFSH - History History Provided By: Patient - Medical History Medical History: Medical History (Last Updated 02/15/18 @ 23:15 by Belkys Meza MD) History of blood transfusion (Acute) - Surgical History Surgical History: Surgical History (Last Updated 02/15/18 @ 23:15 by Belkys Meza MD) History of dilatation and curettage (Acute) delivery delivered (Acute) - Tobacco History Second Hand Smoke Exposure: No Smoking Status: Current every day smoker (1/2 PPD) - Alcohol History How Often Do You Have a Drink Containing Alcohol: Monthly or less - Substance Use History Substance History: No History of Abuse Medications and Allergies Active Medications: Active Medications Citric Acid/Sodium Citrate (Sodium Citrate/Citric Acid Liq) 30 ml PO SHELL WORKER GARY Stop: 03/03/18 11:59 Cefazolin Sodium 2,000 mg/ (Sodium Chloride) 100 mls @ 200 mls/hr IV.SIG SHELL WORKER [facility] Stop: 03/03/18 11:59 Lactated Ringer's (Lr 1000 Ml Inj) 1,000 mls @ 150 mls/hr IV.CONT .Q6H40M [facility] Lactated Ringer's (Lr 1000 Ml Inj) 1,000 mls @ 2,000 mls/hr IV.SIG .Q30M ONE Stop: 02/27/18 12:24 Allergies Allergy/AdvReac Type Severity Reaction Status Date / Time morphine Allergy Vomiting Verified 02/15/18 22:38 Home Medications Medication Instructions Recorded Confirmed Type esomeprazole magnesium [Nexium] 20 mg PO DAILY 02/15/18 02/15/18 History ferrous sulfate [iron] 325 mg PO DAILY 02/15/18 02/15/18 History prenat.vits,spike,tic-watb-xitfv 1 tab PO DAILY 02/15/18 02/15/18 History [ Vitamin] Exam Vital signs: Vital Signs 02/27/18 11:31 02/27/18 11:32 Temperature 97.9 F Pulse Rate 104 H Blood Pressure 122/69 Narrative: General: well developed, well nourished, no acute distress HEENT: normocephalic atraumatic, extraocular movements intact, neck supple Abdomen: soft, gravid, nontender, nondistended Uterus: fundus term Extremities: full range of motion Skin: normal coloration, no rashes, no suspicious skin lesions noted Neurologic: cranial nerves 2-12 grossly intact, normal muscle tone, normal gait Psychiatric: normal mood and affect, appropriate FHTs: 115-120, +accels, no decels, moderate variability, reactive [place]: quiet Cvx: deferred Assessment and Plan - Diagnosis (1) 39 weeks gestation of Code(s): Z3A.39 - 39 weeks gestation of Status: Acute (2) History of section Code(s): Z98.891 - History of uterine scar from previous surgery Status: Acute (3) History of blood transfusion Code(s): Z92.89 - Personal history of other medical treatment Status: Acute (4) History of dilatation and curettage Code(s): Z98.890 - Other specified postprocedural states Status: Acute - Plan 32y/o @ 39.0wks with h/o CS x2 presents for rCS/BTL. R/B/A of were discussed with the patient. Specifically we reviewed risks of bleeding, infection, pain, injury to baby or internal organs/nerves/ vessels/structures. We reviewed the rare but possible need for emergency hysterectomy if uncontrolled bleeding occurs. She was also counseled on the rare but possible need for a blood transfusion and the associated risks of allergic reaction, HIV (1:1M), and hepatitis (4:1M). She voiced understanding, all questions were answered, and consents were signed. Orders have been placed, bicitra and antibiotics administered, SCDs and mosher placed, and RN/ANES/NICU/Charge notified.
[2018-02-27 12:13] LABS: Baso % (Auto) 0.3 % (0.0-2.0); Eos # (Auto) 0.1 th/mm3 (0.0-0.4); Hematocrit 27.4 % (35.0-46.0); Hemoglobin 8.6 gm/dL (11.6-15.3); Lymph # (Auto) 1.9 th/mm3 (1.0-4.8); Lymph % (Auto) 17.7 % (9.0-44.0); Mean Corpuscular HGB Conc 31.3 % (32.0-36.0); Mean Corpuscular Hemoglobin 22.4 pg (27.0-34.0); Mean Corpuscular Volume 71.6 fL (80.0-100.0); Mean Platelet Volume 9.2 fL (7.0-11.0); Mono # (Auto) 0.5 th/mm3 (0.0-0.9); Mono % (Auto) 4.6 % (0.0-8.0); Neut # (Auto) 8.1 th/mm3 (1.8-7.7); Neut % (Auto) 76.4 % (16.0-70.0); Platelet Count 301 th/mm3 (150-450); Red Blood Count 3.83 mil/mm3 (4.00-5.30); Red Cell Distribution Width 18.5 % (11.6-17.2); White Blood Count 10.6 th/mm3 (4.0-11.0)
[2018-02-27 12:45] LABS: Bacteria,Urine Few /hpf; Bilirubin,Urine Negative (Negative); Clarity,Urine Cloudy (Clear); Color,Urine Amber (Yellw/Straw); Glucose,Urine (UA) Negative (Negative); Leukocyte Esterase,Urine Large (Negative); Mucus,Urine Few /lpf (Occasional); Nitrite,Urine Negative (Negative); Specific Gravity,Urine 1.023 (1.002-1.035); Squamous Epithelial Cell,Urine 14 /hpf (0-5); Urobilinogen,Urine 4 or Greater mg/dL (Less than 2)
[2018-02-27 13:01] LABS: Amphetamine Screen,Urine Neg (Neg); Barbiturate Screen,Urine Neg (Neg); Cannabinoid Screen,Urine Neg (Neg); Cocaine Screen,Urine Neg (Neg)
[2018-02-27 13:02] LABS: Opiate Screen,Urine Neg (Neg)
[2018-02-27] MEDS ORDERED: Morphine Sulfate PF Inj 5 MG/10 ML Ampul ONE (13:19)
[2018-02-27] MEDS ORDERED: Naloxone Inj 0.4 MG/ML Vial IV.PUSH PRN (14:10)
[2018-02-27] MEDS ORDERED: Senna/Docusate Sodium 8.6/50 MG Tablet PO PRN (15:46)
[2018-02-27] MEDS ORDERED: Simethicone 80 MG Chew Tablet PO PRN (15:46)
[2018-02-27] MEDS ORDERED: Oxytocin 30 Units/500ml Premix 30 UNITS/500 ML BAG IV.SIG ONE (15:46)
[2018-02-27] MEDS ORDERED: Zolpidem Tartrate 5 MG Tablet PO PRN (15:46)
[2018-02-27] MEDS ORDERED: fentaNYL Citrate Inj 100 MCG/2 ML Ampul ONE (15:56)
--- NOTE | 2018-02-27 15:58 | P.OP ---
- Preoperative Diagnosis (1) History of section (2) 39 weeks gestation of (3) History of blood transfusion (4) History of dilatation and curettage - Postoperative Diagnosis (1) delivery delivered Date of procedure: 02/27/18 Procedure: rCS and BTL via distal salpingectomies Anesthesia: spinal Surgeon: Belkys Meza MD Estimated blood loss (mL): 500 IV fluids (mL): 3,200 Urine output (mL): 100 Pathology: other (b/l distal fallopian tubes) Operation and Findings: Antibiotics: 3g ancef prior to skin incision DVT prophylaxis: SCDs were in place and active throughout the entire procedure Drain(s): Yen to straight drain Findings: male infant in vtx presentation delivered at 14:49 weighing 2840g with APGARs of 9/9 Complications: none Disposition: to PACU in stable condition Indication: @ 39.0wks with h/o CSx2 for rCS and BTL Technique: The R/B/A were discussed with the pt, all questions answered, and consents signed. The pt was taken to the operating room where spinal anesthesia was found to be adequate. She was prepped and draped in the normal sterile fashion in the dorsal supine position with leftward tilt. A Pfannenstiel skin incision was made with the scalpel and carried through to the underlying layer of fascia. Extensive fascial scar tissue was encountered and taken down carefully with scissors. The superior aspect of the fascial incision was grasped with Mejia clamps, elevated, and the underlying rectus muscles dissected off bluntly and with Collins scissors. Attention was then turned to the inferior aspect of this incision which, in a similar fashion, was grasped, tented up with Mejia clamps, and the rectus muscles dissected off bluntly and with Collins scissors. The rectus muscles were in the midline, and the peritoneum identified and entered bluntly. The peritoneal incision was stretched with good visualization of the bladder. The bladder blade was inserted and the vesicouterine peritoneum identified, grasped with pick-ups, and entered sharply with Metzenbaum scissors. This incision was extended laterally and a bladder flap created digitally. The bladder blade was then reinserted and the lower uterine segment incised in a transverse fashion with the scalpel. The uterine incision was stretched superiorly and inferiorly. The bladder blade was removed and the 's head delivered atraumatically followed by the body. Delayed cord clamping ensued for 45sec while the was dried, suctioned, and stimulated. The cord was double clamped and cut and handed off to the waiting team. The placenta expelled with manual fundal massage. The uterus was exteriorized and cleared of all clots and debris. The uterine incision was repaired with 0- vicryl in a running, locked fashion. A second layer using 0-monocryl suture was used to obtain excellent hemostasis via embrication. Next, the left fallopian tube was identified and the distal portion was clamped with a Amada and the segment excised with Metzenbaum scissors. The pedicle was ligated with a free tie of plain gut. Good hemostasis was noted. Attention was then turned to the R fallopian tube which was identified as above, grasped, clamped, and excised in a similar fashion. Good hemostasis was noted. The posterior cul-de-sac was suctioned and the uterus was returned to the abdomen. The gutters were cleared of all clots and debris. The rectus muscles and peritoneum were reapproximated en bloc with a 3-0 vicryl figure of eight stitch. The underneath fascia was inspected and found to be hemostatic. The fascia was closed with 0-vicryl in a running fashion. The subcutaneous tissue was irrigated with saline and made hemostatic with the Bovie. The subcutaneous layer was reapproximated with plain gut running in two layers. The skin was closed with 4-0 monocryl. Steristrips were placed and the incision dressed appropriately. The patient tolerated the procedure well. She was taken to the recovery room in stable condition. Sponge, lap, instrument, and needle counts were correct x3.
[2018-02-27] MEDS ORDERED: Oxytocin 30 Units/500ml Premix 30 UNITS/500 ML BAG IV.SIG PRN (20:46)
[2018-02-28 05:56] LABS: Baso % (Auto) 0.2 % (0.0-2.0); Eos # (Auto) 0.1 th/mm3 (0.0-0.4); Eos % (Auto) 0.7 % (0.0-4.0); Hematocrit 23.6 % (35.0-46.0); Hemoglobin 7.4 gm/dL (11.6-15.3); Lymph # (Auto) 1.8 th/mm3 (1.0-4.8); Lymph % (Auto) 15.1 % (9.0-44.0); Mean Corpuscular HGB Conc 31.6 % (32.0-36.0); Mean Corpuscular Hemoglobin 22.6 pg (27.0-34.0); Mean Corpuscular Volume 71.4 fL (80.0-100.0); Mean Platelet Volume 9.1 fL (7.0-11.0); Mono # (Auto) 0.8 th/mm3 (0.0-0.9); Mono % (Auto) 6.6 % (0.0-8.0); Neut # (Auto) 9.5 th/mm3 (1.8-7.7); Neut % (Auto) 77.4 % (16.0-70.0); Platelet Count 238 th/mm3 (150-450); Red Cell Distribution Width 18.4 % (11.6-17.2); White Blood Count 12.3 th/mm3 (4.0-11.0)
--- NOTE | 2018-02-28 08:31 | P.PNOB ---
Subjective Post op day: 1 Interval history: Postoperative day #1 AFVSS overnight. Incision not draining. Decreased lochia. Denies dysuria. No breast tenderness. Appetite good. No nausea or vomiting. Positive flatus. Ambulating well. Denies calf pain or shortness of breath. Otherwise, she is doing well this morning and has no other complaints. Objective Vital Signs/I&O: Vital Signs 02/27/18 11:31 02/27/18 11:32 02/27/18 11:45 Temperature 97.9 F Pulse Rate 104 H Respiratory Rate 18 Blood Pressure 122/69 02/27/18 15:49 02/27/18 16:06 02/27/18 16:21 Temperature 98.0 F Pulse Rate 58 L 57 L 56 L Respiratory Rate 18 18 18 Blood Pressure 131/60 135/66 101/57 L 02/27/18 16:30 02/27/18 16:39 02/27/18 17:00 Temperature 98.1 F 97.8 F Pulse Rate 56 L 56 L Respiratory Rate 18 16 Blood Pressure 101/80 116/63 02/27/18 20:00 02/28/18 00:00 02/28/18 01:30 Temperature 98.2 F 98.5 F Pulse Rate 92 H 72 Respiratory Rate 18 18 18 Blood Pressure 133/58 L 121/66 02/28/18 04:00 Temperature 98.3 F Pulse Rate 71 Respiratory Rate 18 Blood Pressure 110/67 Intake & Output 02/27/18 02/28/18 02/28/18 18:59 06:59 18:59 Weight 132 kg Other: Weight On Admission 132 kg Result Diagrams: 02/28/18 05:27 Objective Remarks: GENERAL: Well-nourished, well-developed patient. CARDIOVASCULAR: Regular rate and rhythm without murmurs, gallops, or rubs. RESPIRATORY: Breath sounds equal bilaterally. No accessory muscle use. ABDOMEN/GI: Abdomen soft, non-tender, bowel sounds present. Incision: Clean, dry and intact. Fundus: Firm, non-tender at umbilicus. GENITOURINARY: Light to moderate bleeding. EXTREMITIES: No cyanosis or edema, non-tender, without signs of DVT. Medications and IVs: Active Medications Citric Acid/Sodium Citrate (Sodium Citrate/Citric Acid Liq) 30 ml PO GAS ENGINE MECHANIC GARY Stop: 03/03/18 11:59 Last Admin: 02/27/18 13:51 Dose: 30 ml Diphenhydramine HCl (Benadryl) 50 mg PO Q6H PRN PRN Reason: MILD TO MODERATE ITCHING Stop: 02/28/18 14:09 Diphenhydramine HCl (Benadryl Inj) 25 mg IV.PUSH Q6H PRN PRN Reason: MILD TO MODERATE ITCHING Stop: 02/28/18 14:09 Diphtheria/Pertussis/Tetanus Vacc (Boostrix Vaccine Inj) 0.5 ml IM .ONCE ONE Stop: 02/28/18 16:01 Cefazolin Sodium 2,000 mg/ (Sodium Chloride) 100 mls @ 200 mls/hr IV.SIG GAS ENGINE MECHANIC [facility] Stop: 03/03/18 11:59 Lactated Ringer's (Lr 1000 Ml Inj) 1,000 mls @ 150 mls/hr IV.CONT .Q6H40M [facility] Last Admin: 02/27/18 13:52 Dose: 150 mls/hr Lactated Ringer's (Lr 1000 Ml Inj) 1,000 mls @ 100 mls/hr IV.CONT .Q10H [facility] Stop: 02/28/18 16:45 Oxytocin (Pitocin 30 Units/Ns 500 Ml Premix) 30 units in 500 mls @ 100 mls/hr IV.SIG UNSCH PRN PRN Reason: Heavy bleeding Ibuprofen (Motrin) 800 mg PO Q8H PRN PRN Reason: cramping Last Admin: 02/28/18 00:25 Dose: 800 mg Ketorolac Tromethamine (Toradol Inj) 30 mg IM Q6H PRN PRN Reason: SEE LABEL COMMENTS Measles/Mumps/Rubella Vaccine Live (M-M-R Ii Vaccine Inj) 0.5 ml SQ .ONCE ONE Stop: 02/28/18 16:01 Miscellaneous Information (Misc Nursing Information) 1 each OTHER UNSCH PRN PRN Reason: SEE LABEL COMMENTS Stop: 02/28/18 14:09 Miscellaneous Information (Misc Nursing Information) 1 each OTHER UNSCH PRN PRN Reason: SEE LABEL COMMENTS Stop: 02/28/18 14:09 Naloxone HCl (Narcan Inj) 0.4 mg IV.PUSH UNSCH PRN PRN Reason: SEE LABEL COMMENTS Stop: 02/28/18 14:09 Ondansetron HCl (Zofran Inj) 4 mg IV.PUSH Q6H PRN PRN Reason: NAUSEA OR VOMITING Oxycodone/Acetaminophen (Percocet 5/325 Mg) 2 tab PO Q4H PRN PRN Reason: PAIN SCALE 6 TO 10 Last Admin: 02/28/ 00:24 Dose: 2 tab Oxycodone/Acetaminophen (Percocet 5/325 Mg) 1 tab PO Q4H PRN PRN Reason: PAIN SCALE 3 TO 5 Senna/Docusate Sodium (Janett-Colace) 2 tab PO Q12H PRN PRN Reason: CONSTIPATION Simethicone (Mylicon Chew) 80 mg PO QID PRN PRN Reason: FLATULENCE Sodium Chloride (Ns Flush) 2 ml IV.FLUSH BID GARY Sodium Chloride (Ns Flush) 2 ml IV.FLUSH PRN PRN PRN Reason: FLUSH AFTER USING IV ACCESS Zolpidem Tartrate (Ambien) 5 mg PO HS PRN PRN Reason: INSOMNIA Assessment and Plan - Plan 32y/o female who is POD#1 s/p CXN. -Continue routine care. -Percocet and Motrin PRN pain. -Encouraged OOB. Advised pelvic rest for 6 wks. Will need a f/u appt. in 1 wk for incision check. -Re: ctrl, she does not wish to discuss at this time. -D/c in 1-[address] Meza
[2018-02-28] MEDS ORDERED: Diphtheria/Tetanus/Pertussis Vaccine Inj 0.5 ML Syringe IM ONE (16:00)
[2018-02-28] MEDS ORDERED: Measles/Mumps/Rubella Vaccine Inj 0.5 ML Vial SQ ONE (16:00)
[2018-02-28 21:01] VITALS: RESP 18
--- NOTE | 2018-03-01 08:49 | P.PNOB ---
Subjective Interval history: Postoperative day #2 AFVSS overnight. Incision not draining. Decreased lochia. Denies dysuria. No breast tenderness. Appetite good. No nausea or vomiting. Positive flatus. Ambulating well. Denies calf pain or shortness of breath. Otherwise, she is doing well this morning and has no other complaints. Objective Vital Signs/I&O: Vital Signs 02/28/18 12:00 02/28/18 20:00 Temperature 97.9 F Pulse Rate 74 66 Respiratory Rate 20 18 Blood Pressure 111/72 93/54 L Result Diagrams: 02/28/18 05:27 Objective Remarks: GENERAL: Well-nourished, well-developed patient. CARDIOVASCULAR: Regular rate and rhythm without murmurs, gallops, or rubs. RESPIRATORY: Breath sounds equal bilaterally. No accessory muscle use. ABDOMEN/GI: Abdomen soft, non-tender, bowel sounds present. Incision: Clean, dry and intact. Fundus: Firm, non-tender at umbilicus. GENITOURINARY: Light to moderate bleeding. EXTREMITIES: No cyanosis or edema, non-tender, without signs of DVT. Medications and IVs: Active Medications Citric Acid/Sodium Citrate (Sodium Citrate/Citric Acid Liq) 30 ml PO DRESSMAKER HELPER [facility] Stop: 03/03/18 11:59 Last Admin: 02/27/18 13:51 Dose: 30 ml Cefazolin Sodium 2,000 mg/ (Sodium Chloride) 100 mls @ 200 mls/hr IV.SIG DRESSMAKER HELPER [facility] Stop: 03/03/18 11:59 Lactated Ringer's (Lr 1000 Ml Inj) 1,000 mls @ 150 mls/hr IV.CONT .Q6H40M [facility] Last Admin: 02/27/18 13:52 Dose: 150 mls/hr Oxytocin (Pitocin 30 Units/Ns 500 Ml Premix) 30 units in 500 mls @ 100 mls/hr IV.SIG UNSCH PRN PRN Reason: Heavy bleeding Ibuprofen (Motrin) 800 mg PO Q8H PRN PRN Reason: cramping Last Admin: 03/01/18 03:59 Dose: 800 mg Ketorolac Tromethamine (Toradol Inj) 30 mg IM Q6H PRN PRN Reason: SEE LABEL COMMENTS Ondansetron HCl (Zofran Inj) 4 mg IV.PUSH Q6H PRN PRN Reason: NAUSEA OR VOMITING Oxycodone/Acetaminophen (Percocet 5/325 Mg) 2 tab PO Q4H PRN PRN Reason: PAIN SCALE 6 TO 10 Last Admin: 03/01/18 03:59 Dose: 2 tab Oxycodone/Acetaminophen (Percocet 5/325 Mg) 1 tab PO Q4H PRN PRN Reason: PAIN SCALE 3 TO 5 Senna/Docusate Sodium (Janett-Colace) 2 tab PO Q12H PRN PRN Reason: CONSTIPATION Simethicone (Mylicon Chew) 80 mg PO QID PRN PRN Reason: FLATULENCE Last Admin: 02/28/18 09:26 Dose: 80 mg Sodium Chloride (Ns Flush) 2 ml IV.FLUSH BID GARY Last Admin: 02/28/18 12:43 Dose: Not Given Sodium Chloride (Ns Flush) 2 ml IV.FLUSH PRN PRN PRN Reason: FLUSH AFTER USING IV ACCESS Zolpidem Tartrate (Ambien) 5 mg PO HS PRN PRN Reason: INSOMNIA Assessment and Plan - Plan 32y/o female who is POD#2 s/p CXN. -Continue routine care. -Percocet and Motrin PRN pain. -Encouraged OOB. Advised pelvic rest for 6 wks. Will need a f/u appt. in 1 wk for incision check. -Re: ctrl, she does not wish to discuss at this time. -D/c today or tomorrow. wdw Dr. Gomez - Attending Attestation The exam, history, and the medical decision-making described in the above note were completed with the assistance of the resident physician. I reviewed and agree with the findings presented. I attest that I had a [id number] encounter with the patient on the same day, and personally performed and documented my assessment and findings in the medical record.
[2018-03-01 09:00] VITALS: BP 117/63; PULSE 68; TEMP 98
--- NOTE | 2018-03-01 14:47 | P.DS ---
Date of admission: 02/27/18 11:18 Primary care physician: Manda Primary Care Physician Attending physician on discharge: Natividad Hutson Anticipated date of discharge: 03/01/18 Brief History from admission: 32 year-old presented for repeat delivery at term. She underwent a delivery with bilateral tubal ligation on the day of admission which was without complication. She was transferred to the unit in stable condition and had an uncomplicated and postoperative course. The patient is requesting discharge at this time. DS: Summary Hospital Course: 32 year-old presented for repeat delivery at term. She underwent a delivery with bilateral tubal ligation on the day of admission which was without complication. She was transferred to the unit in stable condition and had an uncomplicated and postoperative course. The patient is requesting discharge at this time. - Time Spent with Patient Total time spent providing and/or coordinating discharge services: Less than 30 minutes Exam Vital signs: Vital Signs 02/28/18 20:00 03/01/18 08:00 Temperature 97.9 F 98.0 F Pulse Rate 66 68 Respiratory Rate 18 18 Blood Pressure 93/54 L 117/63 Results Procedures completed during hospitalization: delivery Discharge Plan - Discharge Disposition Patient Disposition: 01 Discharge Home - Discharge Condition Condition: Stable - Discharge Order Discharge Orders: Discharge Order (Routine); Ordered 03/01/18 Ordered By: Natividad Hutson - Physicians Team Primary Care Provider: Primary Care Manda Irizarry Attending Provider: Belkys Meza Rxs /Orders / Referrals /Forms Prescriptions: No Action albuterol sulfate 90 mcg/actuation HFA aerosol inhaler 2 inh INHALATION Q8H PRN (Reason: bronchospasm) Qty: 8 RF: 1 esomeprazole magnesium [Nexium] 20 mg Capsule,Delayed Release(Dr/Ec) 20 mg PO DAILY ferrous sulfate [iron] 325 mg (65 mg iron) Tablet 325 mg PO DAILY prenat.vits,spike,[id number] [ Vitamin] Tablet 1 tab PO DAILY Referrals: Primary Care Manda Irizarry [Primary Care Provider] - See Instructions - Discharge Instructions Patient Printed Instructions: (DC)
== END 2018-03-01 17:21 | disposition home or self-care (01) ==
LOC: H2E 11:18 → H1EA 16:59
PROVIDERS: ADMIT Obstetrics & Gynecology; ATTEND Obstetrics & Gynecology